=== PATIENT | male | born 1995 | race American Indian/Alaskan Native ===

== ENCOUNTER 2020-09-02 06:18 | Emergency (ER) | payer SELFPAY ==
--- NOTE | 2020-09-02 07:39 | Emergency Department Report ---
ED Asthma HPI - General Chief Complaint: Chest Pain Stated Complaint: ASTHMA/CHEST PAIN/COLD SX Time Seen by Provider: 09/02/20 07:34 Source: patient Mode of arrival: Ambulatory Limitations: No Limitations - History of Present Illness Initial Comments: 24-year-old male with past medical history of asthma presents to the ER today with complaints of URI symptoms/asthma. Patient states that his symptoms started gradually yesterday while he was at work. He reports associated rhinorrhea, nasal congestion, intermittent productive and nonproductive coughi ng, mild wheezing, mild shortness of breath and chest discomfort. He denies any fever or chills. Patient states that he has been out of his albuterol MDI for a while. He denies any apparent ill contacts, or recent travel. He denies history of tobacco use or any other significant past history. He states that he has never been hospitalized with asthma in the past. MD Complaint: "asthma attack", other (URI symptoms) -: Gradual - Related Data Previous Rx's Medication Instructions Recorded Last Taken Type Albuterol Mdi (or & Nicu Only) 2 puff IH QID PRN #8.5 gram 09/02/20 Unknown Rx [ProAir HFA Inhaler] Cetirizine HCl [Zyrtec 10mg tab] 10 mg PO DAILY #30 tablet 09/02/20 Unknown Rx predniSONE [Deltasone] 50 mg PO QDAY #5 tab 09/02/20 Unknown Rx ED Review of Systems ROS: Stated complaint: ASTHMA/CHEST PAIN/COLD SX Other details as noted in HPI Comment: All other systems reviewed and negative Constitutional: denies: chills, fever ENT: congestion, other (Rhinorrhea). denies: ear pain, throat pain, dental pain, hearing loss, epistaxis Respiratory: cough, shortness of breath, wheezing. denies: SOB with exertion, SOB at rest Cardiovascular: chest pain (Chest discomfort) Gastrointestinal: denies: abdominal pain, nausea, diarrhea Genitourinary: denies: urgency, dysuria Skin: denies: rash, lesions Neurological: denies: headache, weakness, paresthesias Psychiatric: denies: anxiety, depression Hematological/Lymphatic: denies: easy bleeding, easy bruising ED Past Medical Hx - Past Medical History Previous Medical History?: No Hx Asthma: Yes - Surgical History Past Surgical History?: No - Social History Smoking Status: Never Smoker Substance Use Type: None - Medications Home Medications: Home Medications Medication Instructions Recorded Confirmed Last Taken Type Albuterol Mdi (or & Nicu Only) 2 puff IH QID PRN #8.5 gram 09/02/20 Unknown Rx [ProAir HFA Inhaler] Cetirizine HCl [Zyrtec 10mg tab] 10 mg PO DAILY #30 tablet 09/02/20 Unknown Rx predniSONE [Deltasone] 50 mg PO QDAY #5 tab 09/02/20 Unknown Rx ED Physical Exam - General Limitations: No Limitations General appearance: alert, in no apparent distress - Head Head exam: Present: atraumatic, normocephalic, normal inspection - Eye Eye exam: Present: normal appearance, PERRL, EOMI Pupils: Present: normal accommodation - ENT ENT exam: Present: normal exam, mucous membranes moist - Neck Neck exam: Present: normal inspection, full ROM. Absent: meningismus - Respiratory Respiratory exam: Present: normal lung sounds bilaterally. Absent: respiratory distress, wheezes, rales, rhonchi, stridor - Cardiovascular Cardiovascular Exam: Present: regular rate, normal rhythm, normal heart sounds - GI/Abdominal GI/Abdominal exam: Present: soft. Absent: distended, tenderness, guarding - Neurological Exam Neurological exam: Present: alert, oriented X3, CN II-XII intact, normal gait - Psychiatric Psychiatric exam: Present: normal affect, normal mood - Skin Skin exam: Present: intact ED Course Vital Signs 09/02/20 09/02/20 06:35 06:38 Temperature 97.8 F Pulse Rate 90 74 Respiratory 16 Rate Blood Pressure 103/78 [Right] O2 Sat by Pulse 99 100 Oximetry ED Medical Decision Making - EKG Data EKG shows normal: sinus rhythm Rate: normal (78) - EKG Data Interpretation: no acute changes - Radiology Data Radiology results: report reviewed Patient: TYLOR FERRARA MR#: [id number] : 1995 Acct:[id number] Age/Sex: 24 / M ADM Date: 09/02/20 Loc: ED Attending Dr: Ordering Physician: JAZIEL DIAZ Date of Service: 09/02/20 Procedure(s): XR chest routine 2V Accession Number(s): [id number] cc: JAZIEL DIAZ Fluoro Time In Minutes: CHEST 2 VIEWS INDICATION / CLINICAL INFORMATION: chest pain/cough. COMPARISON: 11/24/2011 chest radiograph FINDINGS: SUPPORT DEVICES: None. HEART / MEDIASTINUM: No significant abnormality. LUNGS / PLEURA: No significant pulmonary or pleural abnormality. No p neumothorax. ADDITIONAL FINDINGS: No significant additional findings. IMPRESSION: 1. No acute findings. No interval change. Signer Name: Ashlyn Mitchell MD Signed: 09/02/2020 8:14 AM Workstation Name: [id number] - Medical Decision Making 24-year-old male with past medical history of asthma presents to the ER today with complaints of URI symptoms/asthma. Patient states that his symptoms started gradually yesterday while he was at work. He reports associated rhinorrhea, nasal congestion, intermittent productive and nonproductive coughing , mild wheezing, mild shortness of breath and chest discomfort. He denies any fever or chills. Patient states that he has been out of his albuterol MDI for a while. He denies any apparent ill contacts, or recent travel. He denies history of tobacco use or any other significant past history. He states that he has never been hospitalized with asthma in the past. 0829: Chest x-ray shows nothing acute. EKG shows no STEMI, acute ischemic changes or significant dysrhythmias. Patient sitting comfortably in the room. Is not in any acute pain or respiratory distress. He is not hypoxic, febrile tachycardic and his remaining vitals are stable. He is well-appearing and nontoxic. He appears well-hydrated. Suspect his symptoms related to URI/asthma at this time. No indication for additional work-up, admission or emergent consult or transfer at this time. Discussed imaging results, EKG results, suspected diagnosis and treatment plan with patient. Patient expressed understanding of instructions and agree with plan. Patient stable at time of discharge. Critical care attestation.: If time is entered above; I have spent that time in minutes in the direct care of this critically ill patient, excluding procedure time. ED Disposition Clinical Impression: URI (upper respiratory infection), Asthma Disposition: DC-01 TO HOME OR SELFCARE Is pt being admited?: No Does the pt Need Aspirin: No Condition: Stable Instructions: Asthma, Adult, Upper Respiratory Infection, Adult, [id number], Asthma (ED) Additional Instructions: Take the Zyrtec, prednisone and use albuterol MDI as instructed. You can take Motrin and or Tylenol as needed for pain. Follow-up with the primary care doctor listed on your discharge instructions. Return to the ER if your symptoms changes or worsens in any way. Prescriptions: predniSONE [Deltasone] 50 mg PO QDAY #5 tab Albuterol Mdi (or & Nicu Only) [ProAir HFA Inhaler] 2 puff IH QID PRN #8.5 gram PRN Reason: Shortness Of Breath Cetirizine HCl [Zyrtec 10mg tab] 10 mg PO DAILY #30 tablet Referrals: KYLER WIGGINS MD [Staff Physician] - 3-5 Days Forms: Work/School Release Form(ED) Time of Disposition: 08:23
--- NOTE | 2020-09-02 08:19 | XRay Report ---
CHEST 2 VIEWS INDICATION / CLINICAL INFORMATION: chest pain/cough. COMPARISON: 11/24/2011 chest radiograph FINDINGS: SUPPORT DEVICES: None. HEART / MEDIASTINUM: No significant abnormality. LUNGS / PLEURA: No significant pulmonary or pleural abnormality. No pneumothorax. ADDITIONAL FINDINGS: No significant additional findings. IMPRESSION: 1. No acute findings. No interval change. Signer Name: Ashlyn Mitchell MD Signed: 09/02/2020 8:14 AM Workstation Name: [id number]
[2020-09-02 08:56] VITALS: BP 110/57
== END 2020-09-02 08:57 | disposition home or self-care (01) ==
LOC: ED 06:18
DX: J06.9 Acute upper respiratory infection, unspecified (principal); J45.909 Unspecified asthma, uncomplicated; Z79.899 Other long term (current) drug therapy
CPT/HCPCS: 71046; 93005